=== PATIENT | male | born 1945 | race Caucasian/White ===

== ENCOUNTER → 2017-12-10 10:03 | Outpatient (CLI) | payer MEDICARE, SELFPAY ==
[2017-12-10 10:48] LABS: Add Manual Diff / Slide Review NO; Basophils Percent Auto 0.3 % (0-2); Eosinophils Percent Auto 1.3 % (2-4); Hematocrit 47.6 % (41-53); Hemoglobin 16.2 g/dL (13.5-17.5); Lymphocytes Percent Auto 18.7 % (25-40); Mean Corpuscular HGB Conc 33.9 % (30-36); Mean Corpuscular Hemoglobin 29.7 PG (26-34); Mean Corpuscular Volume 87.4 fL (80-100); Monocytes Percent Auto 10.5 % (3-14); Neutrophils Absolute Auto 5100 /uL (3000-5900); Neutrophils Percent Auto 69.2 % (50-75); Platelet Count 217 X10^3/uL (150-400); Red Blood Cell Count 5.45 X10^6/uL (4.5-5.9); White Blood Cell Count 7.3 X10^3/uL (4.5-11.0)
[2017-12-10 11:08] LABS: Alanine Aminotransferase 27 IU/L (21-72); Albumin 4.1 g/dL (3.5-5.0); Albumin Globulin Ratio 1.4 (1.0-2.8); Alkaline Phosphatase 58 U/L (38-126); Aspartate Aminotransferase 21 IU/L (17-59); BUN Creatinine Ratio 24.4 (6-22); Bilirubin Total 0.7 mg/dL (0.2-1.3); Blood Urea Nitrogen 22 mg/dL (9-20); Calcium 9.7 mg/dL (8.4-10.2); Carbon Dioxide 27 mmol/L (22-32); Chloride 105 mmol/L (98-107); Estimated Glomerular Filt Rate > 60.0 mL/min (>60); Glucose 112 mg/dL (80-110); HEMOLYSIS < 15 (0-50); Potassium 4.4 mmol/L (3.4-5.1); Sodium 141 mmol/L (137-145); Total Protein 7.1 g/dL (6.3-8.2)
[2017-12-11 12:54] LABS: Free Kappa Light Chain 19.5 mg/L (3.3-19.4); Free Kappa/ Lambda Ratio 1.94 (0.26-1.65)
[2017-12-11 16:23] LABS: Immunoglobulin M, Quantitative 452 mg/dL (48-271)
== END ==
PROVIDERS: Internal Medicine Hematology & Oncology; Family Provider Family Medicine; PCP Family Medicine; Visit Provider Nurse Practitioner Gerontology
DX: C88.0 Waldenstrom macroglobulinemia (principal)
CPT/HCPCS: 36415; 80053; 82784; 83883; 85025

== ENCOUNTER → 2018-05-20 08:53 | Outpatient (CLI) | payer MEDICARE, SELFPAY ==
[2018-05-20 09:15] LABS: Add Manual Diff / Slide Review NO; Basophils Percent Auto 0.5 % (0-2); Eosinophils Percent Auto 2.3 % (2-4); Hemoglobin 15.9 g/dL (13.5-17.5); Lymphocytes Percent Auto 22.4 % (25-40); Mean Corpuscular HGB Conc 33.8 % (30-36); Mean Corpuscular Hemoglobin 29.8 PG (26-34); Mean Corpuscular Volume 88.2 fL (80-100); Monocytes Percent Auto 9.9 % (3-14); Neutrophils Absolute Auto 3900 /uL (1500-7000); Neutrophils Percent Auto 64.9 % (50-75); Platelet Count 222 X10^3/uL (150-400); Red Blood Cell Count 5.33 X10^6/uL (4.5-5.9)
[2018-05-20 09:27] LABS: Alanine Aminotransferase 26 IU/L (21-72); Albumin 4.4 g/dL (3.5-5.0); Albumin Globulin Ratio 1.6 (1.0-2.8); Alkaline Phosphatase 57 U/L (38-126); Aspartate Aminotransferase 25 IU/L (17-59); Blood Urea Nitrogen 19 mg/dL (9-20); Calcium 9.4 mg/dL (8.4-10.2); Carbon Dioxide 23 mmol/L (22-32); Chloride 107 mmol/L (98-107); Estimated Glomerular Filt Rate > 60.0 mL/min (>60); Globulin 2.8 g/dL (1.7-4.1); Glucose 102 mg/dL (80-110); HEMOLYSIS 16 (0-50); Lactate Dehydrogenase 376 U/L (313-618); Sodium 145 mmol/L (137-145); Total Protein 7.2 g/dL (6.3-8.2)
[2018-05-21 14:13] LABS: Immunoglobulin M, Quantitative 441 mg/dL (48-271)
[2018-05-21 14:31] LABS: Free Kappa Light Chain 18.4 mg/L (3.3-19.4); Free Kappa/ Lambda Ratio 2.12 (0.26-1.65); Free Lambda 8.7 mg/L (5.7-26.3)
[2018-05-23 14:59] LABS: Abnormal Protein Band 1 0.4 g/dL (NONE DETECTED); Alpha 1 Globulin 0.3 g/dL (0.2-0.3); Alpha 2 Globulin 0.5 g/dL (0.5-0.9); Beta 1 Globulin 0.4 g/dL (0.4-0.6); Gamma Globulin 1.1 g/dL (0.8-1.7); Protein, Total 6.6 g/dL (6.1-8.1)
== END ==
PROVIDERS: Family Provider Student in an Organized Health Care Education/Training Program; PCP Student in an Organized Health Care Education/Training Program; Visit Provider Internal Medicine Hematology & Oncology
DX: C88.0 Waldenstrom macroglobulinemia (principal)
CPT/HCPCS: 36415; 80053; 82784; 83615; 83883; 84155; 84165; 85025

== ENCOUNTER → 2018-12-02 12:25 | Outpatient (CLI) | payer MEDICARE, SELFPAY ==
[2018-12-02 13:06] LABS: Add Manual Diff / Slide Review NO; Basophils Absolute Auto 0 /uL (0-100); Basophils Percent Auto 0.5 % (0-2); Eosinophils Absolute Auto 0 /uL (0-450); Eosinophils Percent Auto 0.8 % (2-4); Hematocrit 45.2 % (41-53); Hemoglobin 15.2 g/dL (13.5-17.5); Lymphocytes Absolute Auto 1200 /uL (1100-4500); Lymphocytes Percent Auto 21.4 % (25-40); Mean Corpuscular HGB Conc 33.6 % (30-36); Mean Corpuscular Hemoglobin 29.8 PG (26-34); Mean Corpuscular Volume 88.5 fL (80-100); Monocytes Absolute Auto 600 /uL (0-900); Neutrophils Absolute Auto 3900 /uL (1500-7000); Neutrophils Percent Auto 67.3 % (50-75); Platelet Count 198 X10^3/uL (150-400); Red Cell Distribution Width 12.9 % (11.6-14.8); White Blood Cell Count 5.8 X10^3/uL (4.5-11.0)
[2018-12-02 13:52] LABS: Alanine Aminotransferase 14 IU/L (21-72); Albumin 4.2 g/dL (3.5-5.0); Albumin Globulin Ratio 1.4 (1.0-2.8); Alkaline Phosphatase 51 U/L (38-126); Aspartate Aminotransferase 24 IU/L (17-59); BUN Creatinine Ratio 15.6 (6-22); Blood Urea Nitrogen 14 mg/dL (9-20); Calcium 9.6 mg/dL (8.4-10.2); Carbon Dioxide 28 mmol/L (22-32); Chloride 106 mmol/L (98-107); Estimated Glomerular Filt Rate > 60.0 mL/min (>60); Glucose 72 mg/dL (80-110); HEMOLYSIS < 15 (0-50); Lactate Dehydrogenase 354 U/L (313-618); Potassium 4.2 mmol/L (3.4-5.1); Sodium 142 mmol/L (137-145); Total Protein 7.2 g/dL (6.3-8.2)
[2018-12-03 18:18] LABS: Free Kappa/ Lambda Ratio 1.98 (0.26-1.65); Free Lambda 9.1 mg/L (5.7-26.3)
[2018-12-05 13:52] LABS: Beta-2-Microglobulin 2.25 mg/L (< 2.52)
[2018-12-05 14:55] LABS: Immunoglobulin A 128 mg/dL (20-320); Immunoglobulin G, Quantitative 886 mg/dL (600-1540); Immunoglobulin M, Quantitative 406 mg/dL (50-300)
[2018-12-08 13:57] LABS: Abnormal Protein Band 1 0.4 g/dL (NONE DETECTED); Albumin 3.8 g/dL (3.8-4.8); Alpha 1 Globulin 0.3 g/dL (0.2-0.3); Alpha 2 Globulin 0.5 g/dL (0.5-0.9); Beta 1 Globulin 0.4 g/dL (0.4-0.6); Gamma Globulin 1.1 g/dL (0.8-1.7); Protein, Total 6.4 g/dL (6.1-8.1)
== END ==
PROVIDERS: PCP Student in an Organized Health Care Education/Training Program; Visit Provider Internal Medicine Hematology & Oncology
DX: C88.0 Waldenstrom macroglobulinemia (principal)
CPT/HCPCS: 36415; 80053; 82232; 82784; 83615; 83883; 84155; 84165; 85025; 86334

== ENCOUNTER → 2019-12-04 07:51 | Outpatient (CLI) | payer MEDICARE, SELFPAY ==
[2019-12-04 08:23] LABS: Add Manual Diff / Slide Review NO; Basophils Absolute Auto 0 /uL (0-100); Basophils Percent Auto 0.5 % (0-2); Eosinophils Absolute Auto 100 /uL (0-450); Eosinophils Percent Auto 1.9 % (2-4); Hematocrit 44.7 % (41-53); Hemoglobin 15.6 g/dL (13.5-17.5); Lymphocytes Absolute Auto 1200 /uL (1100-4500); Lymphocytes Percent Auto 21.2 % (25-40); Mean Corpuscular HGB Conc 34.8 % (30-36); Mean Corpuscular Hemoglobin 30.3 PG (26-34); Mean Corpuscular Volume 87.1 fL (80-100); Monocytes Absolute Auto 600 /uL (0-900); Monocytes Percent Auto 10.4 % (3-14); Neutrophils Absolute Auto 3700 /uL (1500-7000); Platelet Count 187 X10^3/uL (150-400); Red Blood Cell Count 5.13 X10^6/uL (4.5-5.9); Red Cell Distribution Width 12.9 % (11.6-14.8); White Blood Cell Count 5.6 X10^3/uL (4.5-11.0)
[2019-12-04 08:44] LABS: Alanine Aminotransferase 15 IU/L (<50); Albumin 4.1 g/dL (3.5-5.0); Albumin Globulin Ratio 1.4 (1.0-2.8); Alkaline Phosphatase 56 U/L (38-126); Aspartate Aminotransferase 23 IU/L (17-59); BUN Creatinine Ratio 18.8 (6-22); Blood Urea Nitrogen 19 mg/dL (9-20); Calcium 9.4 mg/dL (8.4-10.2); Carbon Dioxide 30 mmol/L (22-32); Chloride 104 mmol/L (98-107); Estimated Glomerular Filt Rate > 60.0 mL/min (>60); Globulin 2.9 g/dL (1.7-4.1); Glucose 94 mg/dL (80-110); HEMOLYSIS < 15 (0-50); Lactate Dehydrogenase 316 U/L (313-618); Potassium 4.3 mmol/L (3.4-5.1); Sodium 139 mmol/L (137-145)
[2019-12-05 05:36] LABS: Immunoglobulin A 130 mg/dL (61-437); Immunoglobulin G, Quantitative 848 mg/dL (603-1613); Immunoglobulin M, Quantitative 414 mg/dL (15-143)
[2019-12-07 13:10] LABS: Beta-2-Microglobulin 1.8 mg/L (0.6-2.4)
[2019-12-07 21:08] LABS: Albumin 3.7 g/dL (2.9-4.4); Alpha 1 Globulin 0.3 g/dL (0.0-0.4); Alpha 2 Globulin 0.5 g/dL (0.4-1.0); Beta 1 Globulin 0.8 g/dL (0.7-1.3); Immunoglobulin A 133 mg/dL (61-437); Immunoglobulin G 871 mg/dL (603-1613); Immunoglobulin M 447 mg/dL (15-143); Protein, Total 6.4 g/dL (6.0-8.5)
[2019-12-13 14:29] LABS: Free Kappa Lt Chains, Serum 20.9; Free Lambda Lt Chains,Serum 9.5
== END ==
PROVIDERS: PCP Student in an Organized Health Care Education/Training Program; Referring Provider Internal Medicine Hematology & Oncology; Visit Provider Internal Medicine Hematology & Oncology
DX: C88.0 Waldenstrom macroglobulinemia (principal)
CPT/HCPCS: 36415; 80053; 82232; 82784; 83615; 83883; 84155; 84165; 85025

== ENCOUNTER → 2020-01-02 15:36 | Outpatient (CLI) | payer MEDICARE, SELFPAY ==
[2020-01-04 20:45] LABS: COVID19 Sendout Not Detected (Not Detect)
== END ==
PROVIDERS: PCP Student in an Organized Health Care Education/Training Program; Visit Provider Physician Assistant
DX: Z11.59 Encounter for screening for other viral diseases (principal)
CPT/HCPCS: 87635

== ENCOUNTER 2020-01-05 07:46 | Day surgery (SDC) | payer MEDICARE, SELFPAY ==
--- NOTE | 2020-01-05 | PATH_ITS ---
[facility] Accession Number: [id number] . 01 Material submitted: . PART A: body - 80CM PART B: ileo-cecal valve - ILEOCECAL VALVE POLYP PART C: body - 25CM . 02 Diagnosis: A. Colon Polyp at 80 cm, Biopsy: Tubular adenoma. . B. Ileocecal Valve Polyp, Biopsy: Tubular adenoma. . C. Colon Polyp at 25 cm, Biopsy: Hyperplastic polyp. MRV 01/07/2020 1315 Local . 02 Electronically signed: . Cortes Hidalgo MD, PhD, Pathologist NPI- [id number] . 01 Gross description: . Part A: 80CM: Received in formalin are 5 fragment(s) of nath, soft tissue measuring 0.6 x 0.3 x 0.1 cm to 0.2 x 0.2 x 0.1 cm submitted entirely in 1 cassette(s) Part B: ILEOCECAL VALVE POLYP: Received in formalin is 1 fragment(s) of nath, soft tissue measuring 0.4 x 0.3 x 0.3 cm submitted entirely in 1 cassette(s) Part C: 25CM: Received in formalin are 4 fragment(s) of nath, soft tissue measuring 0.5 x 0.3 x 0.2 cm to 0.3 x 0.2 x 0.2 cm submitted entirely in 1 cassette(s) /QBJ 01/06/2020 0933 Local . 02 Pathologist provided ICD-10: D12.0, D12.6 . 02 CPT . 776701, [id number], [id number] Performed at: [address], [place], [place] [id number] MD Dexter Freeman MD Phone: [phone] Performed at: 02 [facility] [place] [address] [place] [id number] MD Jesika Patton MD Phone: [phone]
[2020-01-05 08:11] VITALS: BP 173/85; PULSE 65; RESP 12; TEMP 36.6; O2SAT 100; BMI 24.5
[2020-01-05] MEDS: LACTATED RINGERS 1,000 ML 200 ML IV (08:22)
--- NOTE | 2020-01-05 08:35 | PM.HP.1 ---
History of Present Illness History of Present Illness Date Patient Seen: 01/05/20 Time Patient Seen: 08:35 Chief complaint: SDC Narrative: The patient is a gentleman with a personal history of polyps. His last exam was 5 years ago. No family history of colon cancer. 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[place] (Acute) Surgical History (Updated 12/15/18 @ 11:15 by Nadine Degroot MD) Status post hernia repair Family & Social History Family History (Updated 04/19/14 @ 00:00 by Conversion Provider) Father Heart disease Hypertension High cholesterol Mother Hypertrophic cardiomyopathy Stroke Social History: household members spouse Tobacco & Substance use: Smoking Status Never smoker alcohol intake current Substance Use Type does not use Meds Home Medications and Allergies Home Medications Medication Instructions Recorded Confirmed Type omega 6-tew-jgh-fish oil [Fish Oil] 2,000 mg PO QDAY #0 05/18/11 01/05/20 History ketoconazole [Nizoral] 1 applic TOPICAL Q3D PRN 12/18/17 01/05/20 History lisinopril 5 mg tablet 5 mg PO QDAY #90 tab 07/30/19 01/05/20 Rx tadalafil 20 mg tablet 20 mg PO DAILY #30 tab 11/23/19 12/22/19 Rx cholecalciferol (vitamin D3) 2,000 mcg PO DAILY 01/05/20 01/05/20 History [Vitamin D3] clobetasol 0.05 % TOPICAL Q3D PRN 01/05/20 01/05/20 History flaxseed oil 1,400 mg PO DAILY 01/05/20 01/05/20 History magnesium 400 mg PO DAILY 01/05/20 01/05/20 History multivitamin 1 tab PO DAILY 01/05/20 01/05/20 History tadalafil [Cialis] 5 mg PO DAILY 01/05/20 01/05/20 History Allergies Allergy/AdvReac Type Severity Reaction Status Date / Time No Known Drug Allergies Allergy Verified 01/02/20 15:35 Review of Systems Review of Systems Narrative: Wears hearing aids ROS: Yes All systems reviewed with the patient and are negative except as otherwise documented Exam Vital Signs (past 8 hours): - 01/05/20 08:11 Temperature 97.8 F Pulse Rate 65 Respiratory Rate 12 Blood Pressure 173/85 H Pulse Oximetry 100 Oxygen Delivery Method Room Air Narrative Exam Narrative: Pleasant cooperative patient no apparent distress. Lungs are clear to auscultation. No rales or rhonchi. Heart regular rate and rhythm no murmur gallop. Abdomen is soft nontender without mass. No obvious hernias. Patient is alert and oriented x3. Assessment & Plan Assessment & Plan narrative: The patient for a screening colonoscopy. I have discussed the procedure with them. Risks of bleeding, perforation which would necessitate major operation, failure to find remove all lesions, the potential tattoo were all discussed. All questions were answered. They wished to proceed.
--- NOTE | 2020-01-05 08:37 | PM.PREOP ---
Pre-operative Note COVID-19 COVID-19 status: Negative Result date/Date tested (Pos, Neg/Pending): 01/02/20 Interval Note History & Physical reviewed/Exam performed by Physician: Yes Changes to H&P: No ASA Class (for procedural sedation): II
[2020-01-05] MEDS: MIDAZOLAM 5 MG/5 ML VIAL IV (09:10)
[2020-01-05] MEDS: fentaNYL 250 MCG/5 ML INJ IV (09:13)
--- NOTE | 2020-01-05 09:25 | PM.OP.ENDO ---
Operative Date/Time/Diagnoses Date of procedure: 01/05/20 Time of procedure: 09:25 Pre-op diagnosis: Personal history of polyps Post-op diagnosis: same (Multiple very small polyps.) Procedure & Clinicians Study performed: Colonoscopy with cold biopsy Same procedure as scheduled: Yes Indications: Screening. Personal history of polyps. Surgeon: Dimitrios Gerber Procedure Notes SCOAP/Timeout: Performed Procedure in detail: The patient was placed in the left lateral decubitus position and underwent IV sedation directed by the surgeon consisting of fentanyl and Versed. Digital exam was remarkable for mild enlargement of the prostate. The scope was inserted and advanced through the rectum into the sigmoid, descending, transverse, and ascending colon. I noted a small polyp going in which I biopsied and removed. This was at about 80 cm from the anal verge as measured at egress.. The cecum was reached identified by the ileocecal valve and the appendiceal opening. It was very difficult to reach the cecum as the patient had to be reposition pressure applied a stiffener inserted and the scope repeatedly backed out in push forward. There was a very small polyp just adjacent to the ileocecal valve which was biopsied and removed. The scope was gradually brought out. Additional Polyps were found at just distal to the 1st polyp seen and then there were multiple polyps at about 25 cm. These were all very small and were placed in the same container.. The scope ultimately was retroflexed in the rectum. The appearance was normal. The scope was removed and the patient tolerated the procedure well. Good prep. Scope withdrawal time: 7 minutes(15 total) Sedation minutes: 42 Findings: polyp (Multiple) Specimen(s): other (Polyps) Complications: none Post-procedure Recommendations: Colonscopy in 5 years Follow up: as needed Disposition: PACU
[2020-01-05 09:28] VITALS: BP 128/71; PULSE 63; RESP 18; TEMP 36.3; O2SAT 97
[2020-01-05 09:34] VITALS: BP 130/71; PULSE 60; RESP 14; O2SAT 97
[2020-01-05 09:39] VITALS: BP 138/71; PULSE 63; RESP 15; O2SAT 97
[2020-01-05 09:40] VITALS: BP 141/75; PULSE 65; RESP 15; TEMP 36.3; O2SAT 99
[2020-01-05 09:54] VITALS: BP 138/74; PULSE 59; RESP 16; O2SAT 98
== END 2020-01-05 10:29 | disposition home or self-care (01) ==
PROVIDERS: PCP Student in an Organized Health Care Education/Training Program; Referring Provider Specialist; Visit Provider Specialist
PROC: 0DJD8ZZ Inspection of Lower Intestinal Tract, Via Natural or Artificial Opening Endoscopic (ICD-10-PCS; CPT 45378; principal; 2020-01-05 08:45)
DX: Z12.11 Encounter for screening for malignant neoplasm of colon (principal); Z86.010 Personal history of colon polyps; D12.0 Benign neoplasm of cecum; D12.6 Benign neoplasm of colon, unspecified
CPT/HCPCS: 45380; 99152; 99153; J2250; J3010

== ENCOUNTER → 2020-05-26 08:01 | Outpatient (CLI) | payer MEDICARE, SELFPAY ==
--- NOTE | 2020-05-26 08:03 | DI.CT.S_ITS ---
PROCEDURE: CT CHEST ABD PEL W CON INDICATIONS: Staging lymphoplasmacytic lymphoma TECHNIQUE: After the administration of oral and intravenous contrast, 5 mm thick sections acquired from the lung apices to the symphysis. 5 mm coronal and sagittal reformats were performed, with additional 7 mm coronal MIP reformats through the lungs. For radiation dose reduction, the following was used: automated exposure control, adjustment of mA and/or kV according to patient size. COMPARISON: None. FINDINGS: Image quality: Excellent. CHEST: Lungs and pleura: No acute airspace opacities. No pleural effusions or pneumothorax. Central and peripheral airways appear patent and normal in caliber. Mediastinum: Heart size is normal. No pericardial effusion. No mediastinal or hilar adenopathy by size criteria. Thoracic aorta and central pulmonary arteries are normal in size. Esophagus is normal in caliber. No hiatal hernia. Chest wall: No axillary or supraclavicular adenopathy by size criteria. Thyroid gland appears normal . ABDOMEN: Solid organs: Liver is normal in size and enhancement. The liver to contain scattered small water density hepatic cysts. No solid hepatic mass lesion seen. Gallbladder contains several small nonobstructive densely calcified gallstones. . Biliary system is non dilated. Pancreas enhances normally. Spleen is normal in size and enhancement. No adrenal nodules. Kidneys demonstrate normal size and enhancement, without hydronephrosis. Peritoneum and bowel: Bowel loops demonstrate normal wall thickness and caliber. No free fluid or air. Nodes and vessels: No retroperitoneal or mesenteric adenopathy by size criteria. Aorta and inferior vena cava are normal in size. Miscellaneous: No ventral hernias. PELVIS: Genitourinary: Bladder wall thickness is normal. Miscellaneous: No inguinal hernias or adenopathy. Bones: No suspicious bony lesions. No vertebral body compression fractures. IMPRESSION: 1. No mass lesion identified, no adenopathy found. 2. Marrow space radiodensity is normal. No osteolytic or blastic lesion is seen. 3. The spleen and liver are normal in size. The liver contains scattered water density small hepatic cysts. No solid hepatic mass lesion is found. Dictated by: Faustino Carvalho M.D. on 05/26/2020 at 12:26 Approved by: Faustino Carvalho M.D. on 05/26/2020 at 12:29
== END ==
PROVIDERS: PCP Student in an Organized Health Care Education/Training Program; Referring Provider Internal Medicine; Visit Provider Internal Medicine
DX: C88.0 Waldenstrom macroglobulinemia (principal); G90.09 Other idiopathic peripheral autonomic neuropathy; K76.89 Other specified diseases of liver
CPT/HCPCS: 71260; 74177; Q9967

== ENCOUNTER → 2021-01-06 15:48 | Outpatient (CLI) | payer MEDICARE, SELFPAY ==
[2021-01-06 16:11] LABS: COVID19 -Nasal RAPID POSITIVE (Negative)
== END ==
PROVIDERS: PCP Student in an Organized Health Care Education/Training Program; Referring Provider Physician Assistant; Visit Provider Physician Assistant
DX: U07.1 COVID-19 (principal)
CPT/HCPCS: 87635

== ENCOUNTER → 2021-03-06 09:46 | Outpatient (CLI) | payer MEDICARE, SELFPAY ==
[2021-03-06 11:43] LABS: COVID19 -Nasal RAPID Negative (Negative)
== END ==
PROVIDERS: PCP Student in an Organized Health Care Education/Training Program; Visit Provider Nurse Practitioner Family
DX: Z20.822 Contact with and (suspected) exposure to COVID-19 (principal); Z01.812 Encounter for preprocedural laboratory examination
CPT/HCPCS: 87635; C9803

== ENCOUNTER 2021-03-07 07:06 | Day surgery (SDC) | payer MEDICARE, SELFPAY ==
[2021-03-07 07:28] VITALS: BP 158/81; PULSE 57; RESP 18; TEMP 36.4; O2SAT 99; BMI 24.4
[2021-03-07] MEDS: CATARACT EYE COMPOUND (10 DROPS/SYRINGE) 3 DROPS EYE-OP (07:41)
[2021-03-07] MEDS: PROPARACAINE 0.5% OPHTH SOL 2 DROPS EYE-OP (07:41)
--- NOTE | 2021-03-07 08:32 | PM.PREOP ---
Pre-operative Note Interval Note History & Physical reviewed/Exam performed by Physician: Yes Changes to H&P: No
--- NOTE | 2021-03-07 08:32 | PM.OP.1 ---
Operative Date/Time/Diagnoses Pre-op diagnosis: Nuclear cataract right eye Procedure & Clinicians Procedure: Cataract Surgery Same procedure as scheduled: Yes Surgeon: Fer Chaudhry Anesthesia Type: MAC +/- and Sedation Operative Notes Procedure in detail: Patient brought to the operating suite. Tetracaine drops placed in the right eye. Patient was prepped and draped in sterile manner. Wire lid speculum was placed in the eye. Betadine drops were placed on the eye. This was irrigated. Lidocaine jelly was placed on the eye. A paracentesis port was created with a side-port blade. 0.1 mL 1% preservative free lidocaine was injected into the anterior chamber. The anterior chamber was deepened with viscoelastic. 2.6 mm keratome was used to create a temporal clear corneal incision. Cystotome and Utrata forceps were used to create continuous tear capsulorrhexis. Balanced salt solution was used to hydro dissect the nucleus. The phacoemulsification handpiece was inserted and the nucleus was removed using the stop and chop technique. The irrigation aspiration handpiece was inserted and the remaining cortex was removed. Anterior chamber was deepened with viscoelastic. An Posada DIB00 intraocular lens with a power of 19.5 was injected into the capsular bag. Irrigation aspiration handpiece was inserted and the remaining viscoelastic was removed. Incision was hydrated with balanced salt solution and found to be leak free with pressure with Weck-Amalia sponges. 0.1 mL Vigamox injected anterior chamber. 0.3 mL Kenalog 10 mg was injected subconjunctivally. Lid speculum was removed. The patient left the operating room in excellent condition. Complications: none Post-operative Condition: stable Disposition: same day surgery
[2021-03-07] MEDS: HYALURONATE SODIUM 30 MG-10 MG/ML SYRINGES 1 BOX INTRAOCULA (08:50)
[2021-03-07] MEDS: LIDOCAINE 2% (GLYDO) 6 ML GEL TOP (08:50)
[2021-03-07] MEDS: PHENYLEPHRINE/LIDOCAINE VIAL (OR) 0.2 ML EYE-OP (08:51)
[2021-03-07] MEDS: TETRACAINE 0.5% OPHTH DROPS 4 ML 2 DROPS EYE-OP (08:51)
[2021-03-07] MEDS: TRIAMCINOLONE 50 MG/5 ML VIAL INJ (08:51)
[2021-03-07] MEDS: BALANCED SALT IRRIG SOLN NO.2 500 ML, EPINEPHrine 1 MG IRR (08:51)
[2021-03-07] MEDS: MOXIFLOXACIN INJ 4 MG/0.8 ML VIAL 0.5 MG EYE-OP (08:54)
[2021-03-07 09:14] VITALS: BP 123/72; PULSE 54; RESP 16; TEMP 36.3; O2SAT 98
== END 2021-03-07 09:16 | disposition home or self-care (01) ==
PROVIDERS: PCP Student in an Organized Health Care Education/Training Program; Referring Provider Ophthalmology; Visit Provider Ophthalmology
PROC: (CPT 66984; principal; 2021-03-07 08:45)
DX: H25.11 Age-related nuclear cataract, right eye (principal); I10 Essential (primary) hypertension
CPT/HCPCS: 66984; J0171; J2250; J3301

== ENCOUNTER → 2021-03-17 08:09 | Outpatient (CLI) | payer MEDICARE, SELFPAY ==
[2021-03-17 09:09] LABS: Hemoglobin A1C% w Est Avg Glu 5.2 % (4.0-6.0)
[2021-03-17 10:23] LABS: Glucose Fasting 92 mg/dL (80-110)
[2021-03-17 10:43] LABS: Vitamin B12 > 1000 pg/mL (239-931)
[2021-03-17 10:51] LABS: Thyroid Stimulating Hormone 1.09 uIU/mL (0.47-4.68)
[2021-03-17 11:21] LABS: Glucose 1 Hour 150 mg/dL (70-170)
[2021-03-17 12:01] LABS: Glucose Tol Interpretation INTERPRETATION
[2021-03-17 12:08] LABS: Glucose 2 Hour 114 mg/dL (70-140)
[2021-03-21 09:08] LABS: Vitamin B6 20.2 ug/L (5.3-46.7)
[2021-03-21 10:46] LABS: Methylmalonic Acid,Serum 240 nmol/L (0-378)
[2021-03-21 15:15] LABS: Albumin 3.6 g/dL (2.9-4.4); Alpha-1 Globulin, Ur 3.4 % (.); Alpha-1-Globulin 0.3 g/dL (0.0-0.4); Alpha-2-Globulin 0.6 g/dL (0.4-1.0); Beta Globulin, Ur 35.5 % (.); Gamma Globulin 1.3 g/dL (0.4-1.8); Gamma Globulin, Ur 20.6 % (.); Globulin Total 3.1 g/dL (2.2-3.9); Immunoglobulin A, Serum 159 mg/dL (61-437); Immunoglobulin G,Serum 902 mg/dL (603-1613); Immunoglobulin M, Serum 506 mg/dL (15-143); Protein, Total 6.7 g/dL (6.0-8.5); Urine Total Protein 8.6 mg/dL (Not Estab.)
== END ==
PROVIDERS: PCP Student in an Organized Health Care Education/Training Program; Referring Provider Neuromusculoskeletal Medicine, Sports Medicine; Visit Provider Neuromusculoskeletal Medicine, Sports Medicine
DX: G62.9 Polyneuropathy, unspecified (principal); E07.9 Disorder of thyroid, unspecified; E74.39 Other disorders of intestinal carbohydrate absorption
CPT/HCPCS: 36415; 82607; 82784; 82951; 82952; 83036; 83921; 84155; 84156; 84165; 84166; 84207; 84443; 86334

== ENCOUNTER → 2021-03-20 10:20 | Outpatient (CLI) | payer MEDICARE, SELFPAY ==
[2021-03-20 15:21] LABS: COVID19 -Nasal RAPID Negative (Negative)
== END ==
PROVIDERS: PCP Student in an Organized Health Care Education/Training Program; Visit Provider Physician Assistant
DX: Z01.812 Encounter for preprocedural laboratory examination (principal); Z20.822 Contact with and (suspected) exposure to COVID-19
CPT/HCPCS: 87635; C9803

== ENCOUNTER 2021-03-21 06:36 | Day surgery (SDC) | payer MEDICARE, SELFPAY ==
[2021-03-21 06:55] VITALS: BP 146/76; PULSE 58; RESP 16; TEMP 36.1; O2SAT 97; BMI 24.4
[2021-03-21] MEDS: PROPARACAINE 0.5% OPHTH SOL 2 DROPS EYE-OP (07:07)
[2021-03-21] MEDS: CATARACT EYE COMPOUND (10 DROPS/SYRINGE) 3 DROPS EYE-OP (07:08)
--- NOTE | 2021-03-21 07:33 | PM.PREOP ---
Pre-operative Note Interval Note History & Physical reviewed/Exam performed by Physician: Yes Changes to H&P: No
--- NOTE | 2021-03-21 07:33 | PM.OP.1 ---
Operative Date/Time/Diagnoses Pre-op diagnosis: Nuclear Cataract Left eye Post-op diagnosis: same Procedure & Clinicians Same procedure as scheduled: Yes Surgeon: Fer Chaudhry Anesthesia Type: MAC +/- and Sedation Operative Notes Procedure in detail: Patient brought to the operating suite. Tetracaine drops placed in the left eye. Patient was prepped and draped in sterile manner. Wire lid speculum was placed in the eye. Betadine drops were placed on the eye. This was irrigated. Lidocaine jelly was placed on the eye. A paracentesis port was created with a side-port blade. 0.1 mL 1% preservative free lidocaine was injected into the anterior chamber. The anterior chamber was deepened with viscoelastic. 2.6 mm keratome was used to create a temporal clear corneal incision. Cystotome and Utrata forceps were used to create continuous tear capsulorrhexis. Balanced salt solution was used to hydro dissect the nucleus. The phacoemulsification handpiece was inserted and the nucleus was removed using the stop and chop technique. The irrigation aspiration handpiece was inserted and the remaining cortex was removed. Anterior chamber was deepened with viscoelastic. An Posada DIB00 intraocular lens with a power of 21.0 was injected into the capsular bag. Irrigation aspiration handpiece was inserted and the remaining viscoelastic was removed. Incision was hydrated with balanced salt solution and found to be leak free with pressure with Weck-Amalia sponges. 0.1 mL Vigamox injected anterior chamber. 0.3 mL Kenalog 10 mg was injected subconjunctivally. Lid speculum was removed. The patient left the operating room in excellent condition. Complications: none Post-operative Condition: stable Disposition: same day surgery
[2021-03-21] MEDS: LIDOCAINE 2% (GLYDO) 6 ML GEL TOP (07:47)
[2021-03-21] MEDS: MOXIFLOXACIN INJ 4 MG/0.8 ML VIAL 0.5 MG EYE-OP (07:47)
[2021-03-21] MEDS: HYALURONATE SODIUM 30 MG-10 MG/ML SYRINGES 1 BOX INTRAOCULA (07:47)
[2021-03-21] MEDS: TETRACAINE 0.5% OPHTH DROPS 4 ML 2 DROPS EYE-OP (07:48)
[2021-03-21] MEDS: BALANCED SALT IRRIG SOLN NO.2 500 ML, EPINEPHrine 1 MG IRR (07:48)
[2021-03-21] MEDS: TRIAMCINOLONE 50 MG/5 ML VIAL INJ (07:48)
[2021-03-21] MEDS: PHENYLEPHRINE/LIDOCAINE VIAL (OR) 0.2 ML EYE-OP (07:48)
[2021-03-21 08:10] VITALS: BP 132/79; PULSE 56; RESP 16; TEMP 36.6; O2SAT 97
== END 2021-03-21 08:21 | disposition home or self-care (01) ==
PROVIDERS: PCP Student in an Organized Health Care Education/Training Program; Referring Provider Ophthalmology; Visit Provider Ophthalmology
PROC: (CPT 66984; principal; 2021-03-21 07:45)
DX: H25.12 Age-related nuclear cataract, left eye (principal); I10 Essential (primary) hypertension
CPT/HCPCS: 66984; J0171; J2250; J3301

== ENCOUNTER → 2022-12-18 08:08 | Outpatient (CLI) | payer MEDICARE, SELFPAY ==
[2022-12-18 09:42] LABS: Appearance Urine UA CLEAR; Bilirubin Urine UA NEGATIVE (NEGATIVE); Color Urine UA YELLOW; Glucose Urine UA NEGATIVE (Negative); Ketones Urine UA NEGATIVE (NEGATIVE); Leukocyte Esterase Urine UA NEGATIVE (NEGATIVE); Nitrite Urine UA NEGATIVE (Negative); Occult Blood Urine UA NEGATIVE (Negative); Protein Urine UA NEGATIVE (Negative); Urobilinogen Urine UA 0.2 E.U./dL (0.2)
[2022-12-18 10:04] LABS: Vitamin D 25 Hydroxy (D3) 83.7 ng/mL (30.0-100.0)
[2022-12-18 10:19] LABS: TSH w/ Reflex to FT4 0.98 uIU/mL (0.47-4.68)
[2022-12-18 10:20] LABS: Prostate Specific Antigen Scrn 2.03 ng/mL (0.1-4.0)
[2022-12-18 10:31] LABS: Bacteria Urine Occasional (0-1); Culture Indicated Urine Cult Not Indicated; RBC Urine 0-1/HPF (0-5/HPF); Squamous Epithelial Cell Urine None Seen (0-5/HPF); WBC Urine 0-1/HPF (0-5/HPF)
[2022-12-18 10:35] LABS: Hep C Virus Ab w/Reflex Quant NEGATIVE s/c (NEGATIVE)
[2022-12-19 17:13] LABS: Fecal Immunochemical Test Negative (Negative)
== END ==
PROVIDERS: PCP Internal Medicine; Referring Provider Pediatrics; Visit Provider Pediatrics
DX: Z12.5 Encounter for screening for malignant neoplasm of prostate (principal); E78.2 Mixed hyperlipidemia; D47.2 Monoclonal gammopathy; N52.9 Male erectile dysfunction, unspecified; Z00.00 Encounter for general adult medical examination without abnormal findings; Z12.11 Encounter for screening for malignant neoplasm of colon
CPT/HCPCS: 36415; 81001; 82274; 82306; 84443; 86803; G0103

== ENCOUNTER → 2022-12-28 08:11 | Outpatient (CLI) | payer MEDICARE, SELFPAY ==
[2022-12-28 08:58] LABS: Cholesterol 130 mg/dL (140-199); HDL Cholesterol 40 mg/dL (40-60); LDL Cholesterol Calculated 76 mg/dL (<100); Triglycerides 72 mg/dL (35-150)
== END ==
PROVIDERS: PCP Internal Medicine; Referring Provider Pediatrics; Visit Provider Pediatrics
DX: I10 Essential (primary) hypertension (principal)
CPT/HCPCS: 36415; 80061

== ENCOUNTER → 2023-12-09 09:28 | Outpatient (CLI) | payer MEDICARE, SELFPAY ==
[2023-12-09 10:45] LABS: Add Manual Diff / Slide Review NO; Basophils Absolute Auto 0 /uL (0-100); Basophils Percent Auto 0.4 % (0-2); Eosinophils Absolute Auto 100 /uL (0-450); Eosinophils Percent Auto 1.2 % (2-4); Hematocrit 47.6 % (41-53); Hemoglobin 16.3 g/dL (13.5-17.5); Lymphocytes Absolute Auto 1200 /uL (1100-4500); Mean Corpuscular HGB Conc 34.3 % (30-36); Mean Corpuscular Hemoglobin 29.9 PG (26-34); Mean Corpuscular Volume 87.2 fL (80-100); Monocytes Absolute Auto 800 /uL (0-900); Monocytes Percent Auto 10.3 % (3-14); Neutrophils Absolute Auto 5500 /uL (1500-7000); Neutrophils Percent Auto 72.1 % (50-75); Platelet Count 188 X10^3/uL (150-400); Red Blood Cell Count 5.45 X10^6/uL (4.5-5.9); Red Cell Distribution Width 13.3 % (11.6-14.8); White Blood Cell Count 7.6 X10^3/uL (4.5-11.0)
[2023-12-09 10:54] LABS: Alanine Aminotransferase 18 IU/L (<50); Albumin 4.2 g/dL (3.5-5.0); Albumin Globulin Ratio 1.5 (1.0-2.8); Alkaline Phosphatase 60 U/L (38-126); Aspartate Aminotransferase 23 IU/L (17-59); BUN Creatinine Ratio 22.6 (6-22); Bilirubin Total 0.9 mg/dL (0.2-1.3); Blood Urea Nitrogen 21 mg/dL (9-20); Calcium 9.6 mg/dL (8.4-10.2); Carbon Dioxide 32 mmol/L (22-32); Chloride 105 mmol/L (98-107); Estimated Glomerular Filt Rate > 60 mL/min (>60); Globulin 2.8 g/dL (1.7-4.1); Glucose 65 mg/dL (80-110); HEMOLYSIS < 15 (0-50); Potassium 4.5 mmol/L (3.4-5.1); Sodium 141 mmol/L (137-145)
[2023-12-10 03:38] LABS: Immunoglobulin M, Quantitative 472 mg/dL (15-143)
[2023-12-10 16:08] LABS: Free Kappa Lt Chains, Serum 23.4 mg/L (3.3-19.4); Free Lambda Lt Chains,Serum 10.2 mg/L (5.7-26.3)
== END ==
PROVIDERS: PCP Internal Medicine; Referring Provider Internal Medicine Hematology & Oncology; Visit Provider Internal Medicine Hematology & Oncology
DX: C88.0 Waldenstrom macroglobulinemia (principal)
CPT/HCPCS: 36415; 80053; 82784; 83883; 84155; 84165; 85025

== ENCOUNTER → 2023-12-11 12:25 | Outpatient (CLI) | payer MEDICARE, SELFPAY ==
[2023-12-11 13:11] LABS: Cholesterol 107 mg/dL (140-199); HDL Cholesterol 36 mg/dL (40-60); LDL Cholesterol Calculated 51 mg/dL (<100); Triglycerides 100 mg/dL (35-150)
[2023-12-11 14:29] LABS: Prostate Specific Antigen 0.921 ng/mL (0.10-4.00)
== END ==
PROVIDERS: PCP Internal Medicine; Referring Provider Internal Medicine; Visit Provider Internal Medicine
DX: N40.1 Benign prostatic hyperplasia with lower urinary tract symptoms (principal); E78.2 Mixed hyperlipidemia; N13.8 Other obstructive and reflux uropathy
CPT/HCPCS: 36415; 80061; 84153

== ENCOUNTER → 2024-12-15 10:18 | Outpatient (CLI) | payer MEDICARE, SELFPAY ==
[2024-12-15 10:42] LABS: Hematocrit 44.2 % (41-53); Hemoglobin 15.1 g/dL (13.5-17.5); Mean Corpuscular HGB Conc 34.2 % (30-36); Mean Corpuscular Hemoglobin 30.2 PG (26-34); Mean Corpuscular Volume 88.3 fL (80-100); Platelet Count 194 X10^3/uL (150-400)
[2024-12-15 11:37] LABS: Alanine Aminotransferase 31 IU/L (<50); Albumin 4.1 g/dL (3.5-5.0); Albumin Globulin Ratio 1.7 (1.0-2.8); Alkaline Phosphatase 55 U/L (38-126); Blood Urea Nitrogen 17 mg/dL (9-20); Calcium 9.3 mg/dL (8.4-10.2); Carbon Dioxide 29 mmol/L (22-32); Chloride 105 mmol/L (98-107); Cholesterol 70 mg/dL (140-199); Estimated Glomerular Filt Rate > 60 mL/min (>60); Globulin 2.4 g/dL (1.7-4.1); Glucose 101 mg/dL (70-99); HDL Cholesterol 37 mg/dL (40-60); HEMOLYSIS < 15 (0-50); Potassium 4.3 mmol/L (3.4-5.1); Sodium 140 mmol/L (137-145); Total Protein 6.5 g/dL (6.3-8.2); Triglycerides 35 mg/dL (35-150)
[2024-12-15 12:07] LABS: Prostate Specific Antigen 0.624 ng/mL (0.10-4.00)
[2024-12-18 12:09] LABS: Immunoglobulin G,Serum 819 mg/dL (603-1613)
[2024-12-18 13:11] LABS: Albumin 3.8 g/dL (2.9-4.4); Alpha-1-Globulin 0.2 g/dL (0.0-0.4); Alpha-2-Globulin 0.5 g/dL (0.4-1.0); Gamma Globulin 1.2 g/dL (0.4-1.8)
== END ==
PROVIDERS: PCP Internal Medicine; Referring Provider Internal Medicine; Visit Provider Internal Medicine
DX: D47.2 Monoclonal gammopathy (principal); E78.2 Mixed hyperlipidemia; N40.1 Benign prostatic hyperplasia with lower urinary tract symptoms; N13.8 Other obstructive and reflux uropathy; I10 Essential (primary) hypertension
CPT/HCPCS: 36415; 80053; 80061; 82784; 84153; 84155; 84165; 85027; 86334